=== PATIENT | male | born 2000 | race Caucasian/White ===

== ENCOUNTER 2025-08-12 20:49 | Emergency (ER) | payer OTHER ==
[~2025-08-12] VITALS: Ht 177.8 cm; Wt 81.8 kg
[2025-08-12 20:55] VITALS: BP 153/90; TEMP 98.1; O2SAT 100
== END 2025-08-12 23:40 | disposition home or self-care (01) ==
LOC: M ED 20:49
DX: S00.83XA Contusion of other part of head, initial encounter (principal); Y92.9 Unspecified place or not applicable; Y93.9 Activity, unspecified; Y99.9 Unspecified external cause status; W01.198A Fall on same level from slipping, tripping and stumbling with subsequent striking against other object, initial encounter; F10.10 Alcohol abuse, uncomplicated